=== PATIENT | male | born 1990 | race Caucasian/White ===

== ENCOUNTER 2020-11-28 09:56 | Emergency (ER) | payer SELFPAY ==
--- NOTE | 2020-11-28 10:16 | ED.GENADULT ---
HPI - General Adult General Chief complaint: Eye Problems Stated complaint: Eye pain Time Seen by Provider: 11/28/20 09:58 Source: patient and RN notes reviewed Mode of arrival: ambulatory Limitations: no limitations History of Present Illness HPI narrative: Patient is a 30-year-old male who presents with left eye pain that began at 4 AM this morning for evaluation of left eye discomfort that woke him in the middle of the night denies injury or trauma notes injection and discharge patient notes that he has had similar occurrences over the last year that come and go patient has never been seen for this complaint on arrival to emergency department patient appears uncomfortable but in no distress patient has not taken anything other than ibuprofen for his symptoms Related Data Allergies Allergy/AdvReac Type Severity Reaction Status Date / Time No Known Allergies Allergy Unverified 11/28/20 10:23 Review of Systems Review of Systems: All systems reviewed & are unremarkable except as noted in HPI and below PMFSH Past Medical History Medical History (Updated 11/28/20 @ 12:17 by Abisai Mehta PA-C) Anxiety Social History Social History Smoking status: Never smoker Alcohol intake: never Exam Narrative: Exam Narrative: GENERAL: Well-appearing, well-nourished, and in no acute distress. HEAD: Normocephalic, atraumatic. EYES: PERRLA and EOMI. left eye injection with fluorescein uptake over the pupil consistent with corneal abrasion ENT: Nares clear, no rhinorrhea or epistaxis. Mucous membranes moist. CHEST: Clear to auscultation. No respiratory distress. No wheezes rales or rhonchi HEART: Regular rate and rhythm. No murmur heard. EXTREMITIES: Normal range of motion. No edema. SKIN: Warm, dry, no rash. NEURO: No focal deficits. Alert and oriented x3. PSYCH: Normal mood and affect. Course Course Emergency Course: Patient with corneal abrasion will be referred to ophthalmology and primary care patient given instructions on management felt appropriate for outpatient reevaluation provided with ophthalmology follow-up and reasons to return Vital Signs Vital signs: Vital Signs Temperature 98 F 11/28/20 10:19 Pulse Rate 92 11/28/20 10:19 Respiratory Rate 18 11/28/20 10:19 Blood Pressure 135/90 11/28/20 10:19 Pulse Oximetry 96 11/28/20 10:19 Temperature 98 F 11/28/20 10:19 Pulse Rate 94 11/28/20 11:10 Respiratory Rate 20 11/28/20 11:10 Blood Pressure 137/90 11/28/20 11:10 Pulse Oximetry 94 11/28/20 11:10 Medical Decision Making MDM Narrative Medical decision making narrative: It is felt that the symptoms are likely corneal abrasion had improvement with tetracaine drops erythromycin was placed in the eye in the emergency department and provided with ophthalmology follow-up Vital Signs Vital Signs: Vital Signs Temperature 98 F 11/28/20 10:19 Pulse Rate 92 11/28/20 10:19 Respiratory Rate 18 11/28/20 10:19 Blood Pressure 135/90 11/28/20 10:19 Pulse Oximetry 96 11/28/20 10:19 Temperature 98 F 11/28/20 10:19 Pulse Rate 94 11/28/20 11:10 Respiratory Rate 20 11/28/20 11:10 Blood Pressure 137/90 11/28/20 11:10 Pulse Oximetry 94 11/28/20 11:10 Discharge Plan Discharge Clinical Impression: Corneal abrasion Patient Disposition: Home, Self-Care Condition: Stable Instructions: Antibiotic Form, Corneal Abrasion (DC) Additional Instructions: Follow-up with ophthalmology today to be seen in the next 2 to 3 days Return if symptoms worsen or concerns or any increase in redness swelling pain fever over 100.5 or any visual changes or loss of vision vomiting weakness or change in mental status Follow patient education sheets Use [id number]-[id number] preservative-free drops every 2 hours for symptom relief and healing Only use medications as directed Prescriptions: New erythromycin 5 mg
[2020-11-28 10:19] VITALS: BP 135/90; PULSE 92; RESP 18; TEMP 36.6; O2SAT 96
[2020-11-28] MEDS: SODIUM CHLORIDE 0.9% IV 1,000 ML 999 ML IV CONT (10:38)
[2020-11-28] MEDS: METOCLOPRAMIDE HCL 10 MG TABLET PO (10:39)
[2020-11-28] MEDS: FAMOTIDINE 20 MG/2 ML VIAL IV PUSH (10:39)
[2020-11-28] MEDS: DACRIOSE EYE IRRIGATION 118 ML BOTTLE (11:00)
[2020-11-28] MEDS: TETRACAINE HCL 0.5% OPHTH SOLN 4 ML BTL 1 DROP (11:00)
[2020-11-28] MEDS: FLUORESCEIN SOD 1 MG/STRIP (11:00)
[2020-11-28 11:10] VITALS: BP 137/90; PULSE 94; RESP 20; O2SAT 94
[2020-11-28] MEDS: ERYTHROMYCIN OPHTH OINTMENT 1 GM TUBE 1 APPLIC EACH EYE (12:20)
[2020-11-28 12:21] VITALS: BP 128/84; PULSE 88; RESP 18; O2SAT 98
== END 2020-11-28 12:29 | disposition home or self-care (01) ==
PROVIDERS: Emergency Provider Emergency Medicine; PCP Family Medicine
DX: S05.02XA Injury of conjunctiva and corneal abrasion without foreign body, left eye, initial encounter (principal); X58.XXXA Exposure to other specified factors, initial encounter
CPT/HCPCS: 96361; 96374; 96375; 99284; A9270; J0131; J7030